=== PATIENT | male | born 1930 | race Caucasian/White ===

== ENCOUNTER → 2017-02-06 | Outpatient (CLI) | payer MEDICARE, OTHER ==
[~2017-02-06] MED LIST: LEVOTHYROXINE25 MCG PO; NORCO 5-325 TA1 EACH PO; PRILOSEC DPS20 MG PO; PROBIOTIC1 EAC1 PO; SYNTHROID DP0.025 MG PO; TOPROL XL DPS50 MG PO; TOPROL XL50 MG PO; ULORIC40 MG PO
== END | disposition home or self-care (01) ==
LOC: RAD.S 12:58
DX: C71.8 Malignant neoplasm of overlapping sites of brain (principal); I10 Essential (primary) hypertension; G93.89 Other specified disorders of brain; Z98.890 Other specified postprocedural states